=== PATIENT | female | born 1970 | race American Indian/Alaskan Native ===

== ENCOUNTER 2021-04-16 09:01 | Outpatient (CLI) | payer OTHER ==
--- NOTE | 2021-04-16 09:45 | XRay Report ---
XR shoulder 2+V LT INDICATION: LEFT SHOULDER PAIN. COMPARISON: 03/17/2013. FINDINGS: No fracture or dislocation. No significant soft tissue abnormality. There is subtle cortical irregularity at the distal clavicle which is new since the remote prior. IMPRESSION: 1. Mild distal clavicle osteolysis. Signer Name: Joshua Aggarwal MD Signed: 04/16/2021 9:41 AM Workstation Name: [id number]
== END 2021-04-16 09:02 | disposition home or self-care (01) ==
LOC: XRAY 09:01
PROVIDERS: ATTEND Internal Medicine
DX: M89.512 Osteolysis, left shoulder (principal)